=== PATIENT | female | born 1955 | race Caucasian/White ===

== ENCOUNTER 2017-01-01 05:57 | Day surgery (SDC) | payer OTHER ==
[2016-12-28 10:01] VITALS: BMI 30.2
[2017-01-01] MEDS ORDERED: SUCCINYLCHOLINE CHLORIDE 200 MG/10 ML VIAL ONE (06:58)
[2017-01-01] MEDS ORDERED: PROPOFOL 20 ML ONE ×2 (06:58)
[2017-01-01] MEDS ORDERED: ONDANSETRON 4 MG/2 ML VIAL ONE (06:58)
[2017-01-01] MEDS ORDERED: DEXAMETHASONE SOD PHOSPHATE 4 MG/1 ML VIAL ONE (06:58)
[2017-01-01] MEDS ORDERED: ceFAZolin SODIUM 1 GM VIAL ONE (06:58)
[2017-01-01] MEDS ORDERED: MIDAZOLAM HCL 2 MG/2 ML SINGLE DOSE VIAL ONE (06:58)
[2017-01-01] MEDS ORDERED: LIDOCAINE HCL 2% (20ML MULTI-DOSE VIAL) NR ONE (07:13)
[2017-01-01] MEDS ORDERED: methylPREDNISolone ACET (DEPO) 40 MG/1 ML VIAL ONE (07:41)
[2017-01-01] MEDS ORDERED: LIDOCAINE HCL 1%, 10 MG/ML (20ML VIAL) ONE (07:41)
[2017-01-01] MEDS ORDERED: methylPREDNISolone ACET (DEPO) 80 MG/1 ML VIAL IJ ONE (08:00)
[2017-01-01] MEDS ORDERED: LIDOCAINE HCL 1%, 10 MG/ML (50 mL VIAL) IJ ONE (08:00)
[2017-01-01] MEDS ORDERED: LIDOCAINE HCL 2% (50ML VIAL) INF ONE (08:00)
[2017-01-01 08:38] VITALS: TEMP 97.6
[2017-01-01 09:06] VITALS: BP 141/84; PULSE 94
[2017-01-01] MEDS ORDERED: oxyCODONE HCL 5 MG TABLET ONE (09:15)
[2017-01-01] MEDS ORDERED: ONDANSETRON 4 MG/2 ML VIAL IVPUSH PRN (09:47)
[2017-01-01] MEDS ORDERED: ACETAMINOPHEN 325 MG TABLET (FP) PO PRN (09:47)
[2017-01-01] MEDS ORDERED: oxyCODONE HCL 5 MG TABLET PO PRN ×2 (09:47)
[2017-01-01] MEDS ORDERED: LACTATED RINGERS SOLUTION 1,000 ML IV SCH (10:00)
--- NOTE | 2017-01-03 19:26 | OP ---
DATE OF OPERATION: 01/03/2017 LOCATION: [facility]. SURGEON: Cachorro Dyer MD [employer] MACHINE OPERATOR: HÉCTOR Roberto PREOPERATIVE DIAGNOSIS: Right thumb trigger finger. POSTOPERATIVE DIAGNOSIS: Right thumb trigger finger. PROCEDURE: Right thumb trigger finger release. FINDINGS: Thickened A1 kristen, impingement upon flexor tendon. PROCEDURE: Informed consent was obtained. Patient taken to the operating room, where the right upper extremity was prepped and draped in a sterile fashion. Tourniquet was placed on the upper arm and inflated to 250 mmHg. A horizontal incision was made on the area of the right thumb metacarpophalangeal joint. Neurovascular structures were moved to the side and the A1 kristen was identified. This was incised and then extended proximally and distally for release of the A1 kristen. Curved hemostat was placed around the tendons. These were inspected to have minor fraying, which was debrided. The wound was irrigated was used to copious amounts of irrigation, closed with 4-0 nylon. No impingement noted after removal of A1 kristen. CACHORRO DYER M.D. [id number]
== END 2017-01-01 09:45 | disposition home or self-care (01) ==
LOC: FASU 05:57
PROVIDERS: ATTEND Orthopaedic Surgery
PROC: 0LN70ZZ Release Right Hand Tendon, Open Approach (ICD-10-PCS; principal; 2017-01-01 07:30)
DX: M65.311 Trigger thumb, right thumb (principal)